=== PATIENT | female | born 1975 | race Caucasian/White ===

== ENCOUNTER 2021-04-28 15:13 | Emergency (ER) | payer OTHER ==
[~2021-04-28] VITALS: Ht 165.1 cm; Wt 131.0 kg
[2021-04-28 15:25] VITALS: BP 180/105
[2021-04-28] MEDS ORDERED: HYDR-3965 PO (16:19)
[2021-04-28] MEDS ORDERED: ONDA4TAB6 PO (16:19)
[2021-04-28] MEDS ORDERED: acetaminophen 325mg tablet PO ONE (16:20)
== END 2021-04-28 16:50 | disposition home or self-care (01) ==
LOC: ER 15:14
DX: S52.502A Unspecified fracture of the lower end of left radius, initial encounter for closed fracture (principal); M25.332 Other instability, left wrist; W01.0XXA Fall on same level from slipping, tripping and stumbling without subsequent striking against object, initial encounter; Y93.01 Activity, walking, marching and hiking; Y92.480 Sidewalk as the place of occurrence of the external cause; Y99.8 Other external cause status
CPT/HCPCS: 29125; 73090; 73110; 99284